=== PATIENT | male | born 1975 | race African-American/Black ===

== ENCOUNTER 2018-12-19 03:03 | Inpatient (IN) | payer SELFPAY ==
[2018-12-19] VITALS (9 sets, daily range): BP systolic 129–168; BP diastolic 90–144
[~2018-12-19] VITALS: Ht 167.6 cm; Wt 70.3 kg
--- NOTE | 2018-12-19 03:11 | NUR ---
ED Nurse Note: PT WALKED INTO ED C/O OF SOB X 1 HOUR. PT STATES IT STARTED PERCIPITATING WHILE HE WAS IN BED. PT DENIES ASTHMA HX BUT HAS HIGH BP
--- NOTE | 2018-12-19 03:15 | NUR ---
ED Nurse Note: IV LINE ESTABLISHED BLOOD SPECIMEN SENT TO LAB. PT PLACED ON 2 L NASAL CANNULA. BED AT LOWEST POSITION X 2 SIDERAILS.
--- NOTE | 2018-12-19 03:23 | Emergency Room Report ---
History of Present Illness General Chief Complaint: Dyspnea/Respdistress Source: Patient Present Illness HPI This is a 43-year-old male with a history of high blood pressure. He presents with chief lien shortness of breath. Onset was acute and occurred around 2 AM. Patient woke up with shortness of breath. Worse with lying flat. Worse with exertion. No chest pain. No fever chills but no swelling. About 6 days ago he had similar symptom when he called 911. He was better by the time paramedics got there. 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 Allergies: Coded Allergies: No Known Allergies (Unverified , 12/19/18) Patient History Past Medical History: see triage record, old chart reviewed, HTN Past Surgical History: none Pertinent Family History: none Social History: Reports: smoking Immunizations: other Reviewed Nursing Documentation: PMH: Agreed; PSxH: Agreed Nursing Documentation-PMH Past Medical History: No History, Except For Hx Hypertension: Yes Review of Systems Eye: Denies: eye pain, blurred vision ENT: Denies: ear pain, nose congestion, throat swelling Respiratory: Reports: shortness of breath; Denies: cough Cardiovascular: Reports: palpitations; Denies: chest pain Gastrointestinal: Denies: abdominal pain, diarrhea, nausea, vomiting Musculoskeletal: Denies: back pain, joint pain Skin: Denies: rash Neurological: Denies: headache, numbness Endocrine: Denies: increased thirst, increased urine Hematologic/Lymphatic: Denies: easy bruising All Other Systems: negative except mentioned in HPI Physical Exam Vital Signs Date Time Temp Pulse Resp B/P (MAP) Pulse Ox O2 Delivery O2 Flow Rate FiO2 12/19/18 03:07 99.0 124 18 164/119 (134) 94 Room Air Vitals with tachycardia and high blood pressure Sp02 EP Interpretation: reviewed, normal General Appearance: well appearing, no apparent distress, alert Head: normocephalic, atraumatic Eyes: bilateral eye PERRL, bilateral eye EOMI ENT: hearing grossly normal, normal pharynx Neck: full range of motion, supple, no meningismus Respiratory: chest non-tender, rales - At bases Cardiovascular #1: no murmur, tachycardia, irregularly irregular Gastrointestinal: normal bowel sounds, non tender, no mass, no organomegaly, no bruit, non-distended Musculoskeletal: back normal, gait/station normal, normal range of motion Psychiatric: mood/affect normal Procedures Critical Care Time Critical Care Time Critical care is mandated in this patient who presented with acute respiratory distress secondary to CHF/pulmonary edema. Patient require my urgent intervention to attenuate the risks of respiratory collapse which may lead to cardiovascular collapse and . Critical care time is 35 minutes excluding any reportable procedure. Critical care time included evaluation, multiple reevaluation, looking at old charts, interpreting laboratory and diagnostic data , discussing case with patient and family and consultants, and charting. Medical Decision Making Diagnostic Impression: Primary Impression: Respiratory distress Additional Impressions: Respiratory failure with hypoxia Qualified Codes: J96.01 - Acute respiratory failure with hypoxia Pulmonary edema Qualified Codes: J81.0 - Acute pulmonary edema Hypertensive CHF Qualified Codes: I11.0 - Hypertensive heart disease with heart failure ER Course Patient presents with acute respiratory failure requiring BiPAP. He was very tachycardic in the 130s to 140s. I gave him Cardizem which slowed down the heart rate but is still stay as sinus tachycardia. Blood pressure elevated. He does show evidence of pulmonary edema and CHF. First set of troponin negative. No evidence of any ST elevation. He does have severe LVH with repolarization. This is a typical presentation for PE. He is unstable for CT scan. He is unable to lay flat. I gave him a dose of Lovenox here. He diuresed over a liter with Lasix. Blood pressure improved with Vasotec and Cardizem. Heart rate improved also. He is more comfortable on BiPAP. Will admit for further work-up. I discussed the case with Dr. Paz who will admit. Lab Results Impression Labs with elevated BNP EKG Diagnostic Results Rate: tachycardiac Rhythm: NSR ST Segments: other - LVH with TWI Rhythm Strip Diag. Results EP Interpretation: yes Rate: 114 Rhythm: NSR, no PVC's, no ectopy Chest X-Ray Diagnostic Results Chest X-Ray Diagnostic Results : Chest X-Ray Ordered: Yes # of Views/Limited/Complete: 1 View Indication: Shortness of Breath EP Interpretation: Yes Interpretation: no consolidation, no effusion, no pneumothorax, other - CM with pulm edema Impression: Other - pulm edema Electronically Signed by: Evgeny Cespedes MD Last Vital Signs Date Time Temp Pulse Resp B/P (MAP) Pulse Ox O2 Delivery O2 Flow Rate FiO2 12/19/18 03:07 99.0 124 18 164/119 (134) 94 Room Air Status: improved Disposition: ADMITTED INPATIENT Condition: Critical Evgeny Cespedes MD Dec 19, 2018 03:23
[2018-12-19] MEDS ORDERED: dilTIAZem HCl 25mg/5ml Inj IVP ONE ×2 (03:30→03:45)
[2018-12-19 03:34] LABS: BASOPHILS % (AUTO) 2.2 % (0.0-2.0); EOSINOPHILS % (AUTO) 2.9 % (0.0-3.0); HEMATOCRIT 44.5 % (42.0-52.0); LYMPHOCYTES % (AUTO) 31.8 % (20.0-45.0); MEAN CORPUSCULAR VOLUME 88 FL (80-99); NEUTROPHILS % (AUTO) 51.1 % (45.0-75.0); PLATELET COUNT 234 K/UL (150-450); RED BLOOD COUNT 5.06 M/UL (4.70-6.10); RED CELL DISTRIBUTION WIDTH 12.7 % (11.6-14.8); WHITE BLOOD COUNT 4.1 K/UL (4.8-10.8)
[2018-12-19] MEDS ORDERED: dilTIAZem HCl 25mg/5ml Inj ONE (03:37)
--- NOTE | 2018-12-19 03:41 | NUR ---
ED Nurse Note: RT AT BEDSIDE
[2018-12-19] MEDS ORDERED: LORazepam Inj 2mg/ml 1ml IV ONE (03:45)
[2018-12-19 03:47] LABS: ANION GAP 9 mmol/L (5-15); BLOOD UREA NITROGEN 13 mg/dL (7-18); CALCIUM 8.8 MG/DL (8.5-10.1); CARBON DIOXIDE 24 MMOL/L (21-32); CHLORIDE 104 MMOL/L (98-107); CREATININE 1.1 MG/DL (0.55-1.30); POTASSIUM 3.7 MMOL/L (3.5-5.1); SODIUM 137 MMOL/L (136-145)
[2018-12-19 04:02] LABS: ALANINE AMINOTRANSFERASE 28 U/L (12-78); ALBUMIN 3.5 G/DL (3.4-5.0); ALBUMIN/GLOBULIN RATIO 0.7 (1.0-2.7); ALKALINE PHOSPHATASE 60 U/L (46-116); ASPARTATE AMINO TRANSFERASE 26 U/L (15-37); BILIRUBIN,TOTAL 0.6 MG/DL (0.2-1.0); CREATINE KINASE 64 U/L (26-308)
[2018-12-19] MEDS ORDERED: Enoxaparin 80mg Inj SUBQ ONE (04:30)
[2018-12-19] MEDS ORDERED: Nitroglycerin 2% oint pkt TOPIC ONE (04:30)
[2018-12-19] MEDS ORDERED: Enalaprilat 2.5mg/2ml Inj IV ONE (04:30)
[2018-12-19] MEDS ORDERED: LISINOPRIL10 MG ORAL (04:57)
--- NOTE | 2018-12-19 05:02 | NUR ---
ED Nurse Note: telephone report given to LAURA Carlton
--- NOTE | 2018-12-19 05:20 | NUR ---
ED Nurse Note: PT SENT UP WITH LAURA WATT AND MEETA GRIJALVA. PT IS AOX4, PT DENIES PAIN AT THE MOMENT. PT SHOWS NO ACUTE SIGNS OF DISTRESS. PT SKIN INTACT. PT DENIES PAIN AT THIS TIME. ALL BELONGINGS SENT UP WITH PT.
--- NOTE | 2018-12-19 05:25 | NUR ---
NURSE NOTES: Patient arrived via gurney from ER. Patient placed in bed, tax representative is on, linens are changed, belongings are accounted for at bedside. Report received from LAURA Hendrickson. Patient is stable. Will initiate plan of care.
--- NOTE | 2018-12-19 07:13 | NUR ---
HAND-OFF: Report given to SELVIN NETTLES RN.
[2018-12-19] MEDS ORDERED: Isovue-300 100ml vial INJ PRN (07:15)
--- NOTE | 2018-12-19 07:20 | NUR ---
NURSE NOTES: Received the patient from LAURA Carlton. Patient is asleep, easily arousable, aox4. On 2L O2 via NC. ST 100s noted on the monitoring specialist. Denies SOB or chest pain at this time. Left hand 20G intact. Bed in lowest position, locked, side rails upx2. Bed alarm on. Call light within reach. Will continue to monitor.
[2018-12-19] MEDS ORDERED: LORazepam Inj 2mg/ml 1ml IV SCH (07:31)
[2018-12-19] MEDS ORDERED: Isovue-370 150ml vial INJ PRN (08:15)
--- NOTE | 2018-12-19 08:52 | NUR ---
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 SI: CHF VS: BP: 166/144 HR: 127 RR 21 02 Sat 95% (BIPAP 30) T: 98.8 NT: WBC 4.1 Mean PLT 5.6 Total Protein 8.3 NT-proBNP 1647 UR Cannabinoid + IS: Cardizem 20mg IVP Lasix 40mg IV Cardizem 25mg IVP Ativan 1mg IV Admitted to SDU SDU status DCP: Pending Hospital Stay
[2018-12-19] MEDS ORDERED: Carvedilol 6.25mg Tab ORAL SCH ×2 (09:00→21:00)
[2018-12-19] MEDS ORDERED: Aspirin Baby 81mg ORAL SCH (09:00)
--- NOTE | 2018-12-19 09:00 | History and Physical Report ---
DATE OF ADMISSION: 12/19/2018 REASON FOR ADMISSION: 1. Shortness of breath. 2. Tachycardia. HISTORY OF PRESENT ILLNESS: The patient is a 43-year-old gentleman with isolated hypertension as past medical history, who presented to the emergency room complaining of shortness of breath. Acute on onset around 2 a.m. He was tachycardic. The ER said they could not do a CT with PE protocol due to his respiratory distress. The patient was placed on BiPAP and transferred to the SDU and given a dose of therapeutic Lovenox. The patient says that he does not take any illicit drug use. Denies any current chest pain. PAST MEDICAL HISTORY: Hypertension. PAST SURGICAL HISTORY: None. ALLERGIES: No known drug allergies. FAMILY HISTORY: None. SOCIAL HISTORY: Positive for tobacco. Denies alcohol or illicit drug use REVIEW OF SYSTEMS: NEUROLOGIC: The patient denies headache, change in vision, syncope, or presyncopal episodes. CARDIOVASCULAR: No current chest pain, palpitations, or angina. PULMONARY: Mild shortness of breath. Nonproductive cough. GASTROINTESTINAL/GENITOURINARY: No change in urine or bowels habits. No nausea, vomiting, or diarrhea. ENDOCRINOLOGY: No night sweats, fevers, or chills. PHYSICAL EXAMINATION: VITAL SIGNS: Blood pressure 124/94, respiratory rate 23, pulse 109, and temperature 98.9. The patient is on BiPAP. GENERAL: The patient is awake, mildly short of breath, not otherwise in distress. HEENT: Extraocular muscles intact. No lymphadenopathy noted. Oropharyngeal mucosa is clear and dry. CARDIOVASCULAR: S1, S2. Tachycardic. PULMONARY: rhonchi with positive rales. ABDOMINAL: Nondistended and nontender. EXTREMITY: No edema. LABORATORY DATA: Labs dated December 19, 2018 sodium 137, potassium 3.7, and creatinine 1.1. Brain natriuretic peptide 1647. Troponin 0.004. Hemoglobin 15, white cell count 4.1, and platelet count 234,000. Toxicology screen for marijuana. ASSESSMENT AND PLAN: 1. Respiratory failure. At this time, concern is for possible pulmonary embolism. The patient is being diuresed. Stat CT PE protocol has been ordered. The patient did receive therapeutic Lovenox 80 mg subcutaneous. We will re-evaluate post CT. 2. CHF. Could be secondary to PE. Troponin initial levels negative. Cardiology to evaluate. Pulmonary to evaluate for possible pulmonary embolism. 3. Tachycardia, shortness of breath. Questionable pulmonary embolism. The patient received therapeutic Lovenox. CT PE protocol has been ordered. 4. Hypertension. Blood pressure is currently stable. We will continue Coreg. 5. Tachycardia. It has resolved. Could be secondary to PE. Cardiology to evaluate. Albert Damon MD DR: TERESA JOB#: [id number] CC:
--- NOTE | 2018-12-19 10:45 | Diagnostic Imaging Report ---
ndication: Shortness of breath and tachycardia Technique: IV administration nonionic contrast. Spiral acquisitions obtained from the lung bases to the lung apices. Multiplanar and 3-D reconstructions were generated. Total dose length product 837.93 mGycm. CTDIvol(s) 23.4 mGy. Dose reduction achieved using automated exposure control Comparison: Chest radiograph of 6 hours earlier Findings: Evaluation is limited due to respiratory motion. There is good quality opacification of the pulmonary arteries. There are what appear to be intraluminal filling defects in bilateral upper lobe branches, but this is in the area most affected by motion and this is probably artifactual. No definite intraluminal filling defects or other findings to suggest acute pulmonary embolus are demonstrated otherwise. Normal caliber pulmonary arteries. No evidence of right ventricular dilatation. The heart is borderline enlarged and demonstrates evidence of left ventricular muscular hypertrophy. The proximal great neck vessels are normal in caliber and demonstrate normal branching anatomy. No evidence of thoracic aortic aneurysm or dissection. The included proximal abdominal visceral vessels are normal in caliber. The lungs demonstrate fairly extensive consolidation and atelectasis involving the bilateral lower lobes, particularly posteriorly. There is an irregular opacity in the periphery of the right middle lobe which measures 6 mm in diameter, image 59 series 8. The generalized interstitial congestion evident on prior chest radiograph is not evident on the current exam. There are small bilateral pleural effusions. No pericardial effusion. There is a prominent precarinal node which measures up to 2.4 cm long axis dimension and a prominent right paratracheal node which measures up to 2.1 cm long axis dimension. The included thyroid is unremarkable. No axillary or chest wall mass or adenopathy demonstrated. The included upper abdominal anatomy demonstrates possible hepatomegaly, liver incompletely included. The bones are unremarkable. Impression: No definite evidence of acute pulmonary embolus or other acute thoracic vascular pathology. However, motion artifact precludes exclusion of small upper lobe pulmonary emboli bilaterally. Bilateral basilar consolidation, may reflect confluent pulmonary edema versus pneumonia. There are also atelectatic changes at the lung bases. Small bilateral pleural effusions. Note that interstitial congestion evident on recent chest radiograph is not evident on this exam Borderline cardiomegaly with evidence of possible left ventricular muscular hypertrophy Irregular 6 mm opacity in the periphery of the right middle lobe, probably an inflammatory focus but if there is significant smoking history this should be followed up at 6-12 months Borderline mediastinal lymphadenopathy, significance/etiology uncertain Possible hepatomegaly The CT scanner at [facility] is accredited by the [employer] and the scans are performed using protocols designed to limit radiation exposure to as low as reasonably achievable to attain images of sufficient resolution adequate for diagnostic evaluation.
--- NOTE | 2018-12-19 10:59 | Cardiology Report ---
APPROVED REPORT EKG Measurement Heart [id number] Sinus tachycardia Possible Left atrial enlargement Left ventricular hypertrophy T wave abnormality, consider lateral ischemia Abnormal ECG
--- NOTE | 2018-12-19 11:40 | NUR ---
NURSE NOTES: CTA result reported to Dr. Damon. Monica to transfer the patient to tele.
--- NOTE | 2018-12-19 11:59 | Diagnostic Imaging Report ---
Indication: Shortness of breath for one day Technique: One view of the chest Comparison: none Findings: The heart is enlarged. There is bilateral mostly interstitial edema, possibly with some airspace involvement. The pleural spaces are grossly clear. Impression: Cardiomegaly with evidence of congestive heart failure
--- NOTE | 2018-12-19 12:45 | NUR ---
NURSE NOTES: Patient resting in bed comfortably. VSS. On 2L O2 Via NC. No acute distress noted.
[2018-12-19] MEDS ORDERED: cefTRIAXone 1 GM in D5W 55 ML IVPB SCH (14:00)
--- NOTE | 2018-12-19 14:00 | NUR ---
NURSE NOTES: Patient asleep, easily arousable. Patient on room air, O2 sat 96%. Patient denies any pain or SOB.
--- NOTE | 2018-12-19 15:00 | NUR ---
TRANSFER TO FLOOR: Patient transferred to [facility]. Report given to LAURA Gómez. Belongings and medications given to primary RN. Family informed of transfer.
--- NOTE | 2018-12-19 15:32 | NUR ---
NURSE NOTES: Received report from LAURA Lopes. The patient is resting on the bed without acute distress or shortness of breath. The belongings checked with the patient and LAURA Lopes and signed by receiving and transferring nurse. The patient's bed in the lowest position, call light in reach, and fall and aspiration precaution reinforced. IV site on left AC 20G SL and IV site on L hand 20G running Rocephin IVPB. The patient's skin is intact and free from shortness of breath. Dr. Damon was notified regarding CTA result and no new order but safe to be transferred to tele. The patient's vital signs were as follows: BP of 135/96, Temperature of 99F, SpO2 of 96% in room air, and pulse of 109. Will continue plan of care.
--- NOTE | 2018-12-19 16:15 | Consultation ---
DATE OF CONSULTATION: 12/19/2018 PULMONARY CONSULTATION HISTORY OF PRESENT ILLNESS: This is a 43-year-old male with history of hypertension came to the hospital with shortness of breath. This is acute onset and started yesterday morning. He was placed on BiPAP and given full dose Lovenox. The patient states he is feeling better in the last few hours he has been here. He underwent a CT of the chest and abdomen this morning which was negative for pulmonary embolism. There was bibasilar consolidation suspicious for pneumonia, small pleural effusions. There is also borderline cardiomegaly. The patient states he is feeling better overall. PAST MEDICAL HISTORY: Hypertension. PAST SURGICAL HISTORY: None. ALLERGIES: None. SOCIAL HISTORY: Alcohol and substance use. He admits to tobacco use. REVIEW OF SYSTEMS: Denies any headaches, hematemesis, melena, or hematochezia. PHYSICAL EXAMINATION: GENERAL: Reveals a 43-year-old male. HEENT: Unremarkable. CHEST: Clear breath sounds bilaterally. HEART: Normal heart sounds. ABDOMEN: Soft. EXTREMITIES: There is no edema. NEUROLOGIC: Nonfocal. LABORATORY AND DIAGNOSTIC DATA: Lab testing is unremarkable. Normal CBC and BMP. ProBNP is borderline elevated. Troponin is negative. Toxicology is positive for marijuana. ABG 7.45, pCO2 37, pO2 58, this is on room air. IMPRESSION: 1. Pneumonia versus pulmonary edema. 2. Hypertension. 3. . DISCUSSION: We will obtain 2D echo. Agree with current management and care. We will follow carefully. Consider antibiotics versus diuresis. Agapito Burr M.D. DR: Ozzie JOB#: [id number] CC:
--- NOTE | 2018-12-19 16:24 | Cardiology Report ---
APPROVED REPORT EXAM: Two-dimensional and M-mode echocardiogram with Doppler and color Doppler. INDICATION Congestive Heart Failure M-Mode DIMENSIONS IVSd1.2 (0.7-1.1cm)Left Atrium (MM)2.8 (1.6-4.0cm) LVDd5.2 (3.5-5.6cm)Aortic Root3.5 (2.0-3.7cm) PWd0.6 (0.7-1.1cm)Aortic Cusp Exc.2.1 (1.5-2.0cm) IVSs1.0 cm LVDs4.6 (2.5-4.0cm) PWs0.6 cm Global left ventricular hypoknesis. Mild left ventricular enlargement . Left ventricular ejection fraction estimated to be 20-25%. No evidence of left ventricular hypertrophy . No evidence of pericardial effusion. All other chamber sizes is within normal limits. Focal aortic valve sclerosis with adequate cusp excursion. Thickened mitral valve leaflets with normal excursion. Mitral annulus and aortic root calcification. Normal pulmonic valve structure. Normal tricuspid valve structure. IVC at normal size with physiologic collapse. A color flow and spectral Doppler study was performed and revealed: No aortic insufficiency. Mild to moderate mitral regurgitation. Mitral inflow velocities indicates possible pseudo normalization pattern implying moderately elevated left atrial pressure (Grade II ) Moderate tricuspid regurgitation. Tricuspid systolic velocities suggests peak right ventricular systolic pressure of 42 mmHg,consistent with mild pulmonary HTN.
--- NOTE | 2018-12-19 16:57 | NUR ---
NURSE NOTES: Notified Dr. Hopkins regarding abnormal 2D Echo result and sinus tachy upto 114, and s/s of shortness of breath. Will carry out the order as soon as receives it. Will continue plan of care.
--- NOTE | 2018-12-19 18:08 | Cardiac Electrophysiology PN ---
Subjective Subjective [id number] Objective Last 24 Hour Vital Signs Date Time Temp Pulse Resp B/P (MAP) Pulse Ox O2 Delivery O2 Flow Rate FiO2 12/19/18 16:00 114 12/19/18 16:00 98.9 109 18 134/90 (105) 96 12/19/18 16:00 Nasal Cannula 2.0 12/19/18 16:00 2.0 12/19/18 15:30 99.0 109 18 135/96 (109) 96 12/19/18 12:00 97.5 109 18 135/97 (110) 96 12/19/18 12:00 Nasal Cannula 2.0 12/19/18 12:00 2.0 12/19/18 11:38 104 12/19/18 08:25 109 132/95 12/19/18 08:00 Nasal Cannula 2.0 12/19/18 08:00 98.2 109 16 132/95 (107) 97 12/19/18 08:00 108 12/19/18 05:29 98.9 109 23 124/94 98 Bi-pap 40 12/19/18 05:27 113 12/19/18 05:25 97.3 114 24 129/92 (104) 96 12/19/18 05:25 40 12/19/18 05:25 Bi-pap 12/19/18 05:25 Bi-pap 12/19/18 05:09 111 28 98 Facial 40 12/19/18 04:54 98.9 111 19 151/112 96 Bi-pap 40 12/19/18 04:25 163/122 12/19/18 04:25 166/122 12/19/18 04:01 122 38 93 Facial 40 12/19/18 04:00 122 38 93 Bi-Pap 30 12/19/18 03:49 98.8 127 21 166/144 95 Bi-pap 30 12/19/18 03:40 40 12/19/18 03:38 140 157/115 12/19/18 03:23 124 164/119 12/19/18 03:10 99.0 133 22 168/134 99 Nasal Cannula 2.0 12/19/18 03:10 133 22 Room Air 12/19/18 03:07 99.0 124 18 164/119 (134) 94 Room Air Intake and Output 12/18/18 12/19/18 19:00 07:00 # Voids 3 Laboratory Tests Test 12/19/18 03:15 12/19/18 03:30 12/19/18 07:11 Urine Opiates Screen Negative (NEGATIVE) Urine Barbiturates Screen Negative (NEGATIVE) Phencyclidine (PCP) Screen Negative (NEGATIVE) Urine Amphetamines Screen Negative (NEGATIVE) Urine Benzodiazepines Screen Negative (NEGATIVE) Urine Cocaine Screen Negative (NEGATIVE) Urine Marijuana (THC) Screen Positive (NEGATIVE) H White Blood Count 4.1 K/UL (4.8-10.8) L Red Blood Count 5.06 M/UL (4.70-6.10) Hemoglobin 15.0 G/DL (14.2-18.0) Hematocrit 44.5 % (42.0-52.0) Mean Corpuscular Volume 88 FL (80-99) Mean Corpuscular Hemoglobin 29.7 PG (27.0-31.0) Mean Corpuscular Hemoglobin Concent 33.7 G/DL (32.0-36.0) Red Cell Distribution Width 12.7 % (11.6-14.8) Platelet Count 234 K/UL (150-450) Mean Platelet Volume 5.6 FL (6.5-10.1) L Neutrophils (%) (Auto) 51.1 % (45.0-75.0) Lymphocytes (%) (Auto) 31.8 % (20.0-45.0) Monocytes (%) (Auto) 12.0 % (1.0-10.0) H Eosinophils (%) (Auto) 2.9 % (0.0-3.0) Basophils (%) (Auto) 2.2 % (0.0-2.0) H Prothrombin Time 10.4 SEC (9.30-11.50) Prothromb Time International Ratio 1.0 (0.9-1.1) Activated Partial Thromboplast Time 29 SEC (23-33) Sodium Level 137 MMOL/L (136-145) Potassium Level 3.7 MMOL/L (3.5-5.1) Chloride Level 104 MMOL/L (98-107) Carbon Dioxide Level 24 MMOL/L (21-32) Anion Gap 9 mmol/L (5-15) Blood Urea Nitrogen 13 mg/dL (7-18) Creatinine 1.1 MG/DL (0.55-1.30) Estimat Glomerular Filtration Rate > 60 mL/min (>60) Glucose Level 103 MG/DL (74-106) Calcium Level 8.8 MG/DL (8.5-10.1) Total Bilirubin 0.6 MG/DL (0.2-1.0) Aspartate Amino Transf (AST/SGOT) 26 U/L (15-37) Alanine Aminotransferase (ALT/SGPT) 28 U/L (12-78) Alkaline Phosphatase 60 U/L (46-116) Total Creatine Kinase 64 U/L (26-308) Creatine Kinase MB 1.0 NG/ML (0.0-3.6) Creatine Kinase MB Relative Index 1.5 Troponin I 0.004 ng/mL (0.000-0.056) Pro-B-Type Natriuretic Peptide 1647 pg/mL (0-125) H Total Protein 8.3 G/DL (6.4-8.2) H Albumin 3.5 G/DL (3.4-5.0) Globulin 4.8 g/dL Albumin/Globulin Ratio 0.7 (1.0-2.7) L Arterial Blood pH 7.458 (7.350-7.450) Arterial Blood Partial Pressure CO2 37.7 mmHg (35.0-45.0) Arterial Blood Partial Pressure O2 58.3 mmHg (75.0-100.0) L Arterial Blood HCO3 26.1 mmol/L (22.0-26.0) H Arterial Blood Oxygen Saturation 91.1 % (95-100) L Arterial Blood Base Excess 2.3 (-2-2) H Chip Test Positive Rodrigue Hpokins MD Dec 19, 2018 18:08
--- NOTE | 2018-12-19 19:20 | NUR ---
RESPIRATORY NOTE: PT RECEIVED STABLE OFF BIPAP ON 2LPM O2 VIA NASAL CANNULA. VS ARE WNL AND PATIENT STATES THAT HE IS NOT HAVING ANY SOB AT THE TIME. PT AGREED TO NOTIFY RN IF HE FEELS HE NEED TO GO ON BIPAP. CURRENT ROOM IN WHICH PT IS STAYING DOES NOT HAV A RED OUTLET. LAURA VALENTINO WAS NOTIFIED AND HE WILL TRY TO FIND A ROOM WITH A RED OUTLET IN CASE THE PT NEED TO GO ON BIPAP. WILL CONTINUE TO MONITOR.
--- NOTE | 2018-12-19 19:27 | NUR ---
HAND-OFF: Report given to LAURA Mason. The patient is resting on the bed without acute distress or shortness of breath. The patient's bed in the lowest position, call light in reach, and fall and aspiration precaution reinforced. IV site intact and patent. Endorsed plan of care.
--- NOTE | 2018-12-19 19:30 | NUR ---
NURSE NOTES: Received patient from Dalia SANCHEZ. Patient in bed, on 2L NC, no s/s of respiratory distress. Patient denies pain or SOB. Bed in low position, locked, call light within reach.
--- NOTE | 2018-12-19 20:30 | Consultation ---
DATE OF CONSULTATION: 12/19/2018 CARDIOLOGY CONSULTATION CONSULTING PHYSICIAN: Rodrigue Hopkins M.D. REFERRING PHYSICIAN: Albert Damon M.D. REASON FOR CONSULTATION: Congestive heart failure. HISTORY OF PRESENT ILLNESS: The patient is a 43-year-old gentleman with history of hypertension, who presented to the emergency room complaining of increasing shortness of breath. The emergency room was unable to do a CT angiogram to rule out PE due to respiratory distress. The patient was put on BiPAP and transferred to step-down unit on Lovenox. Subsequently, the patient was then transferred to telemetry floor. The patient denies any prior myocardial infarction, coronary artery disease, or congestive heart failure. He underwent an echocardiogram, which showed ejection fraction of only 20% to 25%. REVIEW OF SYSTEMS: Negative other than what was mentioned in the history of present illness. PAST MEDICAL HISTORY: Hypertension. FAMILY HISTORY: Noncontributory. SOCIAL HISTORY: He lives at home. Denies using any drugs. PHYSICAL EXAMINATION: VITAL SIGNS: Show blood pressure 134/90, pulse 100, and respirations 18. He is afebrile. HEAD AND NECK: Shows positive JVD. LUNGS: Decreased breath sounds. CARDIOVASCULAR: Shows regular S1 and S2 with no gallop or murmur. ABDOMEN: Soft. EXTREMITIES: No pitting edema. LABORATORY AND DIAGNOSTIC DATA: EKG showed sinus rhythm with left atrial enlargement and left ventricular hypertrophy. Labs show toxicology was positive for marijuana. Sodium 137, potassium 3.7, BUN 13, and creatinine 1.1. Glucose 103. Troponin is negative. White count 4.1, hemoglobin 15, hematocrit 44, and platelet count 234,000. INR is 1. ASSESSMENT AND PLAN: 1. Newly diagnosed congestive heart failure, ejection fraction of only 20%. The patient denies any substance abuse. Urine toxicology screen is negative for any drugs except for marijuana. I will start the patient on Lasix 40 mg IV b.i.d. and Coreg 6.25 mg b.i.d., and add lisinopril and Aldactone to his medical regimen. After stabilization, the patient would need ischemic evaluation to rule out coronary artery disease even though unlikely in view of the patient's no prior coronary artery disease or congestive heart failure or chest pain. 2. Hypertension. Maximize current heart failure therapy. 3. Questionable pneumonia. The patient is on antibiotic, but hopefully will improve with diuresis, but remains on antibiotic. Further evaluation per Dr. Burr. Thank you very much for allowing me to participate in the care of this patient. Please do not hesitate to contact me for any questions regarding my evaluation. Rodrigue Hopkins M.D. DR: ROSA ISELA JOB#: [id number] CC:
[2018-12-20] VITALS: BP 145/93
[2018-12-20 04:00] VITALS: BP 145/103
[2018-12-20 06:24] LABS: BASOPHILS % (AUTO) 1.8 % (0.0-2.0); EOSINOPHILS % (AUTO) 2.1 % (0.0-3.0); HEMATOCRIT 43.8 % (42.0-52.0); HEMOGLOBIN 14.9 G/DL (14.2-18.0); LYMPHOCYTES % (AUTO) 23.8 % (20.0-45.0); MEAN CORPUSCULAR VOLUME 88 FL (80-99); MONOCYTES % (AUTO) 12.4 % (1.0-10.0); NEUTROPHILS % (AUTO) 59.9 % (45.0-75.0); PLATELET COUNT 224 K/UL (150-450); RED BLOOD COUNT 4.96 M/UL (4.70-6.10); RED CELL DISTRIBUTION WIDTH 12.9 % (11.6-14.8); WHITE BLOOD COUNT 3.8 K/UL (4.8-10.8)
[2018-12-20 06:45] LABS: ANION GAP 8 mmol/L (5-15); BLOOD UREA NITROGEN 23 mg/dL (7-18); CALCIUM 9.4 MG/DL (8.5-10.1); CARBON DIOXIDE 28 MMOL/L (21-32); CHLORIDE 103 MMOL/L (98-107); CREATININE 1.1 MG/DL (0.55-1.30); POTASSIUM 3.4 MMOL/L (3.5-5.1); SODIUM 139 MMOL/L (136-145)
--- NOTE | 2018-12-20 07:00 | NUR ---
NURSE NOTES: Notified Dr. Hopkins of patient's episode of Vtach of 3 secs overnight. Patient was asymptomatic, asleep. Notified Dr. Damon of AM potassium of 3.4 and that patient is on lasix 40mg IV q 12hrs.
--- NOTE | 2018-12-20 07:09 | NUR ---
NURSE NOTES: Received response from Dr. Hopkins. No new orders.
--- NOTE | 2018-12-20 07:33 | NUR ---
NURSE NOTES: Received report from LAURA Mason. The patient is resting on the bed without acute distress or shortness of breath. The patient denies of respiratory discomfort in room air for now. The patient's bed in the lowest position, call light in reach, and fall and aspiration precaution reinforced. IV site on L AC 20G and L hand 20G are intact and patent. Will continue plan of care.
--- NOTE | 2018-12-20 07:55 | NUR ---
HAND-OFF: Report given to Dalia SANCHEZ.
[2018-12-20 08:00] VITALS: BP 115/83
[2018-12-20] MEDS ORDERED: Isovue-370 150ml vial INJ PRN (08:15)
--- NOTE | 2018-12-20 08:15 | Nephrology Progress Note ---
Assessment/Plan Assessment/Plan: A/P 1) SOB- CAP - start po levaquin 2) CHF- EF 20% - lasix, , coreg, and lsiinopril 3) HTN- increase coreg 4) PNA- levaquin DC once cleared by cardiology Subjective Date patient seen: Dec 20, 2018 Time patient seen: 08:13 ROS Limited/Unobtainable: No Allergies: Coded Allergies: No Known Allergies (Unverified , 12/19/18) Subjective Patient breathing better Objective Last 24 Hour Vital Signs Date Time Temp Pulse Resp B/P (MAP) Pulse Ox O2 Delivery O2 Flow Rate FiO2 12/20/18 08:03 99 Nasal Cannula 2.0 28 12/20/18 08:03 100 18 100 Nasal Cannula 2.0 28 12/20/18 04:00 100.3 114 28 145/103 (117) 98 12/20/18 04:00 2.0 12/20/18 04:00 112 12/20/18 00:22 108 20 94 12/20/18 00:00 2.0 12/20/18 00:00 98.8 115 24 145/93 (110) 95 12/20/18 00:00 113 12/19/18 22:41 102 18 97 12/19/18 21:29 103 18 97 12/19/18 21:17 115 138/98 12/19/18 20:00 Nasal Cannula 2.0 12/19/18 20:00 124 12/19/18 20:00 2.0 12/19/18 20:00 99.7 115 28 138/98 (111) 94 12/19/18 19:20 100 20 96 12/19/18 16:00 114 12/19/18 16:00 98.9 109 18 134/90 (105) 96 12/19/18 16:00 Nasal Cannula 2.0 12/19/18 16:00 2.0 12/19/18 15:30 99.0 109 18 135/96 (109) 96 12/19/18 12:00 97.5 109 18 135/97 (110) 96 12/19/18 12:00 Nasal Cannula 2.0 12/19/18 12:00 2.0 12/19/18 11:38 104 12/19/18 08:25 109 132/95 Intake and Output 12/19/18 12/20/18 18:59 06:59 Intake Total 650 ml 800 ml Output Total 2150 ml 1000 ml Balance -1500 ml -200 ml Intake Oral 650 ml 800 ml Output Urine Total 2150 ml 1000 ml # Voids 6 7 Laboratory Tests 12/20/18 05:40: White Blood Count 3.8L, Red Blood Count 4.96, Hemoglobin 14.9, Hematocrit 43.8, Mean Corpuscular Volume 88, Mean Corpuscular Hemoglobin 30.0, Mean Corpuscular Hemoglobin Concent 34.0, Red Cell Distribution Width 12.9, Platelet Count 224, Mean Platelet Volume 5.7L, Neutrophils (%) (Auto) 59.9, Lymphocytes (%) (Auto) 23.8, Monocytes (%) (Auto) 12.4H, Eosinophils (%) (Auto) 2.1, Basophils (%) ( Auto) 1.8, Sodium Level 139, Potassium Level 3.4L, Chloride Level 103, Carbon Dioxide Level 28, Anion Gap 8, Blood Urea Nitrogen 23H, Creatinine 1.1, Estimat Glomerular Filtration Rate > 60, Glucose Level 104, Calcium Level 9.4, Troponin I 0.026, Pro-B-Type Natriuretic Peptide 814H Height (Feet): 5 Height (Inches): 6.00 Weight (Pounds): 154 General Appearance: no apparent distress EENT: normal ENT inspection Neck: normal alignment, supple Cardiovascular: normal rate, regular rhythm Respiratory/Chest: crackles/rales Abdomen: non tender, soft Edema: no edema noted Arm (L), no edema noted Arm (R), no edema noted Leg (L), no edema noted Leg (R), no edema noted Pedal (L), no edema noted Pedal (R), no edema noted Generalized Albert Damon MD Dec 20, 2018 08:15
[2018-12-20] MEDS ORDERED: Carvedilol 6.25mg Tab ORAL SCH (09:00)
[2018-12-20] MEDS: Carvedilol 6.25mg Tab ORAL SCH ×2 (09:09→21:06)
[2018-12-20] MEDS: Levofloxacin 500mg tab ORAL SCH (09:09)
[2018-12-20] MEDS: Spironolactone 25mg tab ORAL SCH (09:09)
[2018-12-20] MEDS: Aspirin Baby 81mg ORAL SCH (09:09)
[2018-12-20] MEDS: Lisinopril 10mg tab ORAL SCH (09:10)
--- NOTE | 2018-12-20 09:10 | Pulmonology Progress Note ---
Assessment/Plan Assessment/Plan IMPRESSION: 1. Pneumonia versus pulmonary edema. 2. Hypertension. DISCUSSION: Await cardiology followup. Agree with current management and care. I will follow carefully. Antibiotics. Subjective Interval Events: Seen by cardiology Constitutional: Reports: no symptoms HEENT: Repors: no symptoms Respiratory: Reports: no symptoms Cardiovascular: Reports: no symptoms Gastrointestinal/Abdominal: Reports: no symptoms Genitourinary: Reports: no symptoms Allergies: Coded Allergies: No Known Allergies (Unverified , 12/19/18) Objective Last 24 Hour Vital Signs Date Time Temp Pulse Resp B/P (MAP) Pulse Ox O2 Delivery O2 Flow Rate FiO2 12/20/18 08:03 99 Nasal Cannula 2.0 28 12/20/18 08:03 100 18 100 Nasal Cannula 2.0 28 12/20/18 04:00 100.3 114 28 145/103 (117) 98 12/20/18 04:00 2.0 12/20/18 04:00 112 12/20/18 00:22 108 20 94 12/20/18 00:00 2.0 12/20/18 00:00 98.8 115 24 145/93 (110) 95 12/20/18 00:00 113 12/19/18 22:41 102 18 97 12/19/18 21:29 103 18 97 12/19/18 21:17 115 138/98 12/19/18 20:00 Nasal Cannula 2.0 12/19/18 20:00 124 12/19/18 20:00 2.0 12/19/18 20:00 99.7 115 28 138/98 (111) 94 12/19/18 19:20 100 20 96 12/19/18 16:00 114 12/19/18 16:00 98.9 109 18 134/90 (105) 96 12/19/18 16:00 Nasal Cannula 2.0 12/19/18 16:00 2.0 12/19/18 15:30 99.0 109 18 135/96 (109) 96 12/19/18 12:00 97.5 109 18 135/97 (110) 96 12/19/18 12:00 Nasal Cannula 2.0 12/19/18 12:00 2.0 12/19/18 11:38 104 Intake and Output 12/19/18 12/20/18 19:00 07:00 Intake Total 650 ml 800 ml Output Total 2150 ml 1000 ml Balance -1500 ml -200 ml Intake Oral 650 ml 800 ml Output Urine Total 2150 ml 1000 ml # Voids 6 7 General Appearance: no acute distress HEENT: normocephalic Respiratory/Chest: chest wall non-tender, lungs clear Cardiovascular: normal peripheral pulses, normal rate Abdomen: normal bowel sounds, soft, non tender Laboratory Tests 12/20/18 05:40: White Blood Count 3.8L, Red Blood Count 4.96, Hemoglobin 14.9, Hematocrit 43.8, Mean Corpuscular Volume 88, Mean Corpuscular Hemoglobin 30.0, Mean Corpuscular Hemoglobin Concent 34.0, Red Cell Distribution Width 12.9, Platelet Count 224, Mean Platelet Volume 5.7L, Neutrophils (%) (Auto) 59.9, Lymphocytes (%) (Auto) 23.8, Monocytes (%) (Auto) 12.4H, Eosinophils (%) (Auto) 2.1, Basophils (%) ( Auto) 1.8, Sodium Level 139, Potassium Level 3.4L, Chloride Level 103, Carbon Dioxide Level 28, Anion Gap 8, Blood Urea Nitrogen 23H, Creatinine 1.1, Estimat Glomerular Filtration Rate > 60, Glucose Level 104, Calcium Level 9.4, Troponin I 0.026, Pro-B-Type Natriuretic Peptide 814H Current Medications Medications (Trade) Dose Ordered Sig/Malini Route PRN Reason Start Time Stop Time Status Last Admin Dose Admin Acetaminophen (Tylenol) 650 mg Q4H PRN ORAL Mild Pain (Pain Scale 1-3) 12/19/18 15:00 01/18/19 06:59 12/20/18 04:59 Aspirin (ASA) 81 mg DAILY ORAL 12/20/18 09:00 01/18/19 08:59 Carvedilol (Coreg) 6.25 mg EVERY 12 HOURS ORAL 12/20/18 09:00 01/18/19 08:59 Dextrose (Dextrose 50%) 25 ml Q30M PRN IV Hypoglycemia 12/19/18 15:00 01/18/19 06:59 Dextrose (Dextrose 50%) 50 ml Q30M PRN IV Hypoglycemia 12/19/18 15:00 01/18/19 06:59 Famotidine (Pepcid) 40 mg DAILY ORAL 12/20/18 09:00 01/18/19 08:59 Furosemide (Lasix) 40 mg EVERY 12 HOURS IV 12/19/18 21:00 01/18/19 08:59 12/19/18 21:17 Iopamidol (Isovue-370 150ml) 150 ml NOW PRN INJ Radiology Procedure 12/20/18 08:15 12/21/18 08:05 Levofloxacin (Levaquin) 500 mg DAILY ORAL 12/20/18 09:00 12/27/18 08:59 Lisinopril (Zestril) 10 mg DAILY ORAL 12/20/18 09:00 01/19/19 08:59 Potassium Chloride (K-Dur) 40 meq ONCE ORAL 12/20/18 08:45 12/20/18 10:00 Spironolactone (Aldactone) 25 mg DAILY ORAL 12/20/18 09:00 01/19/19 08:59 Agapito Burr MD Dec 20, 2018 09:10
--- NOTE | 2018-12-20 09:46 | NUR ---
NURSE NOTES: Dr. Damon ordered 40mEq KCL for potassium of 3.4. Administered as prescribed. Will continue plan of care.
--- NOTE | 2018-12-20 10:58 | NUR ---
CASE MANAGEMENT: REVIEW 12/20/2018 SI:CHF T 100.3 HR 114 RR 28 B/P 145/103 SATS 98% ON 2L/NC WBC 3.8 K 3.4 BUN 23 BNP 814 IS:LASIX IV Q12H COREG PO Q12H ASA PO Q12H LISINOPRIL PO QD ALDACTONE PO QD LEVAQUIN PO QD TELE STATUS PLAN OF CARE: AWAITING CARDIAC CLEARANCE Addendum: 12/20/18 at 1609 by Carolynn Lipscomb CM INTERQUAL MET
[2018-12-20 12:00] VITALS: BP 122/87
--- NOTE | 2018-12-20 13:57 | Cardiac Electrophysiology PN ---
Assessment/Plan Assessment/Plan 1. Newly diagnosed congestive heart failure, ejection fraction of 20-25% The patient denies any substance abuse. Urine toxicology screen is negative for any drugs except for marijuana. On Lasix 40 mg IV b.i.d., Coreg 6.25 mg bid and lisinopril and Aldactone. Will schedule stress test to rule out ischemic CMP 2. Hypertension. Maximize current heart failure therapy. Subjective Subjective Alert in NAD. No CP. SOB better. Had 11 beats of nonsustained VT Objective Last 24 Hour Vital Signs Date Time Temp Pulse Resp B/P (MAP) Pulse Ox O2 Delivery O2 Flow Rate FiO2 12/20/18 12:00 104 12/20/18 12:00 97.8 109 20 122/87 (99) 97 12/20/18 12:00 2.0 12/20/18 09:10 115/83 12/20/18 09:09 102 115/83 12/20/18 09:00 Nasal Cannula 2.0 12/20/18 08:03 99 Nasal Cannula 2.0 28 12/20/18 08:03 100 18 100 Nasal Cannula 2.0 28 12/20/18 08:00 2.0 12/20/18 08:00 101 12/20/18 08:00 97.9 102 20 115/83 (94) 95 12/20/18 04:00 100.3 114 28 145/103 (117) 98 12/20/18 04:00 2.0 12/20/18 04:00 112 12/20/18 00:22 108 20 94 12/20/18 00:00 2.0 12/20/18 00:00 98.8 115 24 145/93 (110) 95 12/20/18 00:00 113 12/19/18 22:41 102 18 97 12/19/18 21:29 103 18 97 12/19/18 21:17 115 138/98 12/19/18 20:00 Nasal Cannula 2.0 12/19/18 20:00 124 12/19/18 20:00 2.0 12/19/18 20:00 99.7 115 28 138/98 (111) 94 12/19/18 19:20 100 20 96 12/19/18 16:00 114 12/19/18 16:00 98.9 109 18 134/90 (105) 96 12/19/18 16:00 Nasal Cannula 2.0 12/19/18 16:00 2.0 12/19/18 15:30 99.0 109 18 135/96 (109) 96 Intake and Output 12/19/18 12/20/18 19:00 07:00 Intake Total 650 ml 920 ml Output Total 2150 ml 1000 ml Balance -1500 ml -80 ml Intake Oral 650 ml 920 ml Output Urine Total 2150 ml 1000 ml # Voids 6 7 Laboratory Tests Test 12/20/18 05:40 White Blood Count 3.8 K/UL (4.8-10.8) L Red Blood Count 4.96 M/UL (4.70-6.10) Hemoglobin 14.9 G/DL (14.2-18.0) Hematocrit 43.8 % (42.0-52.0) Mean Corpuscular Volume 88 FL (80-99) Mean Corpuscular Hemoglobin 30.0 PG (27.0-31.0) Mean Corpuscular Hemoglobin Concent 34.0 G/DL (32.0-36.0) Red Cell Distribution Width 12.9 % (11.6-14.8) Platelet Count 224 K/UL (150-450) Mean Platelet Volume 5.7 FL (6.5-10.1) L Neutrophils (%) (Auto) 59.9 % (45.0-75.0) Lymphocytes (%) (Auto) 23.8 % (20.0-45.0) Monocytes (%) (Auto) 12.4 % (1.0-10.0) H Eosinophils (%) (Auto) 2.1 % (0.0-3.0) Basophils (%) (Auto) 1.8 % (0.0-2.0) Sodium Level 139 MMOL/L (136-145) Potassium Level 3.4 MMOL/L (3.5-5.1) L Chloride Level 103 MMOL/L (98-107) Carbon Dioxide Level 28 MMOL/L (21-32) Anion Gap 8 mmol/L (5-15) Blood Urea Nitrogen 23 mg/dL (7-18) H Creatinine 1.1 MG/DL (0.55-1.30) Estimat Glomerular Filtration Rate > 60 mL/min (>60) Glucose Level 104 MG/DL (74-106) Calcium Level 9.4 MG/DL (8.5-10.1) Troponin I 0.026 ng/mL (0.000-0.056) Pro-B-Type Natriuretic Peptide 814 pg/mL (0-125) H Objective HEAD AND NECK: Mild JVD. LUNGS: Decreased breath sounds. CARDIOVASCULAR: Shows regular S1 and S2 with no gallop or murmur. ABDOMEN: Soft. EXTREMITIES: No pitting edema. Rodrigue Hopkins MD Dec 20, 2018 13:57
[2018-12-20] MEDS ORDERED: Lexiscan 0.4mg/5ml syringe IV PRN (13:59)
[2018-12-20] MEDS ORDERED: cefTRIAXone 1 GM in D5W 55 ML IVPB SCH (14:00)
[2018-12-20 16:00] VITALS: BP 129/94
--- NOTE | 2018-12-20 16:52 | NUR ---
NURSE NOTES: Dr. Hopkins ordered stress test for tomorrow. Vitaliy, the exhaust emissions automotive technician, the patient will perform nuclear treadmill test tomorrow. Will continue plan of care.
--- NOTE | 2018-12-20 19:40 | NUR ---
NURSE NOTES: Received patient from Dalia SANCHEZ. Patient in bed, on 2L NC, no s/s of respiratory distress, no c/o SOB or chest discomfort. Bed in low position, locked, call light within reach. Patient is alert and oriented x4, calm and cooperative.
[2018-12-20 20:00] VITALS: BP 114/80
[2018-12-21] VITALS: BP 116/74
[2018-12-21 04:00] VITALS: BP 120/77
--- NOTE | 2018-12-21 07:45 | Nephrology Progress Note ---
Assessment/Plan Assessment/Plan: A/P 1) SOB- CAP - po levaquin 2) CHF- EF 20% - lasix, , coreg, and lsiinopril - stress test today 3) HTN- stable 4) PNA- levaquin DC once cleared by cardiology today Subjective Date patient seen: Dec 21, 2018 Time patient seen: 07:43 ROS Limited/Unobtainable: No Allergies: Coded Allergies: No Known Allergies (Unverified , 12/19/18) Subjective Patient much improved. No SOB Objective Last 24 Hour Vital Signs Date Time Temp Pulse Resp B/P (MAP) Pulse Ox O2 Delivery O2 Flow Rate FiO2 12/21/18 04:00 98.1 95 20 120/77 (91) 98 12/21/18 04:00 2.0 12/21/18 04:00 87 12/21/18 00:00 92 12/21/18 00:00 99.2 94 20 116/74 (88) 99 12/21/18 00:00 2.0 12/20/18 21:06 99 114/80 12/20/18 21:00 Nasal Cannula 2.0 12/20/18 20:00 98.3 99 19 114/80 (91) 98 12/20/18 20:00 2.0 12/20/18 20:00 102 12/20/18 19:59 99 Nasal Cannula 2.0 28 12/20/18 16:00 98 12/20/18 16:00 98.3 104 20 129/94 (106) 99 12/20/18 16:00 2.0 12/20/18 12:00 104 12/20/18 12:00 97.8 109 20 122/87 (99) 97 12/20/18 12:00 2.0 12/20/18 09:10 115/83 12/20/18 09:09 102 115/83 12/20/18 09:00 Nasal Cannula 2.0 12/20/18 08:03 99 Nasal Cannula 2.0 28 12/20/18 08:03 100 18 100 Nasal Cannula 2.0 28 12/20/18 08:00 2.0 12/20/18 08:00 101 12/20/18 08:00 97.9 102 20 115/83 (94) 95 Intake and Output 12/20/18 12/21/18 18:59 06:59 Intake Total 1240 ml Output Total 600 ml Balance 640 ml Intake Oral 1240 ml Output Urine Total 600 ml # Voids 8 6 Height (Feet): 5 Height (Inches): 6.00 Weight (Pounds): 154 General Appearance: no apparent distress EENT: normal ENT inspection Neck: normal alignment, supple Cardiovascular: normal rate, regular rhythm Respiratory/Chest: lungs clear, normal breath sounds Abdomen: non tender, soft Edema: no edema noted Arm (L), no edema noted Arm (R), no edema noted Leg (L), no edema noted Leg (R), no edema noted Pedal (L), no edema noted Pedal (R), no edema noted Generalized Albert Damon MD Dec 21, 2018 07:45
[2018-12-21 08:53] VITALS: BP 124/89
[2018-12-21] MEDS: Carvedilol 6.25mg Tab ORAL SCH (09:00)
--- NOTE | 2018-12-21 09:22 | NUR ---
CASE MANAGEMENT: REVIEW 12/21/2018 SI:CHF T 98.1 HR 100 RR 18 B/P 124/89 SATS 98% ON RA NO LABS TODAY IS:LASIX IV Q12H COREG PO Q12H ASA PO Q12H LISINOPRIL PO QD ALDACTONE PO QD LEVAQUIN PO QD TELE STATUS PLAN OF CARE: STRESS TEST W/ TREADMILL TODAY 2D ECHO EF 30-35%
[2018-12-21] MEDS: Lisinopril 10mg tab ORAL SCH (09:27)
[2018-12-21] MEDS: Spironolactone 25mg tab ORAL SCH (09:27)
[2018-12-21] MEDS: Levofloxacin 500mg tab ORAL SCH (09:28)
[2018-12-21] MEDS: Aspirin Baby 81mg ORAL SCH (09:28)
--- NOTE | 2018-12-21 10:31 | Pulmonology Progress Note ---
Assessment/Plan Assessment/Plan IMPRESSION: 1. Probable pneumonia. 2. Hypertension. DISCUSSION: Await cardiology followup. Agree with antibiotics. Subjective Interval Events: None new Constitutional: Reports: no symptoms HEENT: Repors: no symptoms Respiratory: Reports: no symptoms Cardiovascular: Reports: no symptoms Gastrointestinal/Abdominal: Reports: no symptoms Allergies: Coded Allergies: No Known Allergies (Unverified , 12/19/18) Objective Last 24 Hour Vital Signs Date Time Temp Pulse Resp B/P (MAP) Pulse Ox O2 Delivery O2 Flow Rate FiO2 12/21/18 10:25 Nasal Cannula 2.0 12/21/18 09:27 124/89 12/21/18 09:00 100 124/89 12/21/18 08:53 98.1 100 18 124/89 (101) 98 12/21/18 08:16 97 Room Air 21 12/21/18 04:00 98.1 95 20 120/77 (91) 98 12/21/18 04:00 2.0 12/21/18 04:00 87 12/21/18 00:00 92 12/21/18 00:00 99.2 94 20 116/74 (88) 99 12/21/18 00:00 2.0 12/20/18 21:06 99 114/80 12/20/18 21:00 Nasal Cannula 2.0 12/20/18 20:00 98.3 99 19 114/80 (91) 98 12/20/18 20:00 2.0 12/20/18 20:00 102 12/20/18 19:59 99 Nasal Cannula 2.0 28 12/20/18 16:00 98 12/20/18 16:00 98.3 104 20 129/94 (106) 99 12/20/18 16:00 2.0 12/20/18 12:00 104 12/20/18 12:00 97.8 109 20 122/87 (99) 97 12/20/18 12:00 2.0 Intake and Output 12/20/18 12/21/18 18:59 06:59 Intake Total 1240 ml Output Total 600 ml Balance 640 ml Intake Oral 1240 ml Output Urine Total 600 ml # Voids 8 6 General Appearance: no acute distress HEENT: normocephalic Respiratory/Chest: chest wall non-tender, lungs clear Cardiovascular: normal peripheral pulses, normal rate Current Medications Medications (Trade) Dose Ordered Sig/Malini Route PRN Reason Start Time Stop Time Status Last Admin Dose Admin Acetaminophen (Tylenol) 650 mg Q4H PRN ORAL Mild Pain (Pain Scale 1-3) 12/19/18 15:00 01/18/19 06:59 12/20/18 21:12 Aspirin (ASA) 81 mg DAILY ORAL 12/20/18 09:00 01/18/19 08:59 12/21/18 09:28 Carvedilol (Coreg) 6.25 mg EVERY 12 HOURS ORAL 12/20/18 09:00 01/18/19 08:59 12/20/18 21:06 Dextrose (Dextrose 50%) 25 ml Q30M PRN IV Hypoglycemia 12/19/18 15:00 01/18/19 06:59 Dextrose (Dextrose 50%) 50 ml Q30M PRN IV Hypoglycemia 12/19/18 15:00 01/18/19 06:59 Famotidine (Pepcid) 40 mg DAILY ORAL 12/20/18 09:00 01/18/19 08:59 12/21/18 09:28 Furosemide (Lasix) 40 mg EVERY 12 HOURS IV 12/19/18 21:00 01/18/19 08:59 12/21/18 09:27 Levofloxacin (Levaquin) 500 mg DAILY ORAL 12/20/18 09:00 12/27/18 08:59 12/21/18 09:28 Lisinopril (Zestril) 10 mg DAILY ORAL 12/20/18 09:00 01/19/19 08:59 12/21/18 09:27 Regadenoson (Lexiscan) 0.4 mg ONCE PRN IV CARDIOLOGY 12/20/18 13:59 12/21/18 23:59 Spironolactone (Aldactone) 25 mg DAILY ORAL 12/20/18 09:00 01/19/19 08:59 12/21/18 09:27 Agapito Burr MD Dec 21, 2018 10:31
--- NOTE | 2018-12-21 11:34 | Nephrology Progress Note ---
Assessment/Plan Assessment/Plan: A/P 1) SOB- CAP - po levaquin x 5 days more. Rx given 2) CHF- EF 20% - coreg, and lsiinopril. Rx given - stress test today then DC if negative 3) HTN- stable 4) PNA- levaquin DC once cleared by cardiology today Subjective Date patient seen: Dec 21, 2018 Time patient seen: 11:33 ROS Limited/Unobtainable: No Allergies: Coded Allergies: No Known Allergies (Unverified , 12/19/18) Subjective Patient much improved. No SOB or CP Objective Last 24 Hour Vital Signs Date Time Temp Pulse Resp B/P (MAP) Pulse Ox O2 Delivery O2 Flow Rate FiO2 12/21/18 10:25 Nasal Cannula 2.0 12/21/18 09:27 124/89 12/21/18 09:00 100 124/89 12/21/18 08:53 98.1 100 18 124/89 (101) 98 12/21/18 08:16 97 Room Air 21 12/21/18 04:00 98.1 95 20 120/77 (91) 98 12/21/18 04:00 2.0 12/21/18 04:00 87 12/21/18 00:00 92 12/21/18 00:00 99.2 94 20 116/74 (88) 99 12/21/18 00:00 2.0 12/20/18 21:06 99 114/80 12/20/18 21:00 Nasal Cannula 2.0 12/20/18 20:00 98.3 99 19 114/80 (91) 98 12/20/18 20:00 2.0 12/20/18 20:00 102 12/20/18 19:59 99 Nasal Cannula 2.0 28 12/20/18 16:00 98 12/20/18 16:00 98.3 104 20 129/94 (106) 99 12/20/18 16:00 2.0 12/20/18 12:00 104 12/20/18 12:00 97.8 109 20 122/87 (99) 97 12/20/18 12:00 2.0 Intake and Output 12/20/18 12/21/18 18:59 06:59 Intake Total 1240 ml Output Total 600 ml Balance 640 ml Intake Oral 1240 ml Output Urine Total 600 ml # Voids 8 6 Height (Feet): 5 Height (Inches): 6.00 Weight (Pounds): 154 General Appearance: no apparent distress EENT: normal ENT inspection Neck: normal alignment, supple Cardiovascular: normal rate, regular rhythm Respiratory/Chest: lungs clear, normal breath sounds Abdomen: non tender, soft Edema: no edema noted Arm (L), no edema noted Arm (R), no edema noted Leg (L), no edema noted Leg (R), no edema noted Pedal (L), no edema noted Pedal (R), no edema noted Generalized Albert Damon MD Dec 21, 2018 11:34
--- NOTE | 2018-12-21 11:35 | Discharge Instructions ---
Discharge Instructions Discharge Instructions Services at Discharge: day care Diet: 2 GM sodium (low sodium) Resume Normal Activity?: Yes Activity: light activity Follow Up Orders Follow up with PCP 1 week Please give patient the prescriptions for Levaquin, Coreg and Lisinopril For Congestive Heart Failure Reminder Report to your physician any weight gain of 5 pounds or more in one week. Albert Damon MD Dec 21, 2018 11:35
[2018-12-21 12:00] VITALS: BP 117/99
--- NOTE | 2018-12-21 13:28 | NUR ---
Myocardial perfusion scan complete.
--- NOTE | 2018-12-21 14:57 | Diagnostic Imaging Report ---
Indications: Chest pain and shortness of breath Technique: Single day single isotope protocol utilized. Initially, resting images obtained using IV administration 3.0 millicuries 99M technetium Myoview. Subsequently, patient underwent treadmill stress testing. See cardiology report for details. During exercise, IV administration 30.7 mCi 99 M technetium Myoview. SPECT and planar images obtained. SPECT images gated to 8 phases of the cardiac cycle were also obtained, and reformatted into cine images for evaluation of ejection fraction. Comparison: none Findings: Per cardiology report, patient experienced no symptoms during exercise. Per cardiology report, resting EKG demonstrates sinus tachycardia. Patient exercised for 9 minutes 22 seconds, achieved a peak heart rate of 142 bpm, short of the target heart rate of 151 bpm imaging demonstrates equivocal slightly fixed decreased activity in the apex, seen only on the coronal long axis views, not evident on the sagittal and axis views. No other fixed or reversible poststress perfusion defects are demonstrated. There is dilatation of left ventricle. Calculated post stress ejection fraction 21% gated images demonstrate generalized hypokinesis Impression: Nonischemic clinical response to pharmacologic stress, per cardiology report Nonischemic electrocardiographic response to pharmacologic stress, per cardiology report Equivocal fixed apical perfusion defect in only on the coronal long axis images, suspected artifactual but could represent a tiny infarct. No evidence of ischemia, at the level of stress attained Calculated post stress ejection fraction 21%. There is mild dilatation of the left ventricle. There is generalized hypokinesis noted on gated images. This is out of proportion to the degree of perfusion abnormality, and the possibility of nonischemic cardiomyopathy or balanced triple-vessel disease should be considered
[2018-12-21] MEDS ORDERED: LEVAQUIN500 MG ORAL (15:46)
[2018-12-21] MEDS ORDERED: COREG6.25 MG ORAL (15:48)
--- NOTE | 2018-12-21 16:13 | NUR ---
NURSE NOTES: Pt received discharge order once cleared by cardiology with examination of cardiac stress test which was non-ischemic, ID and IV removed, aftercare plan given with prescription, pt will fill Rx at his own pharmacy, pt was Ox4 and was dress, willing to drive home. Family called to let them know of dc
--- NOTE | 2018-12-21 16:18 | Cardiac Electrophysiology PN ---
Assessment/Plan Assessment/Plan 1. Newly diagnosed congestive heart failure, ejection fraction of 20-25% The patient denies any substance abuse. Urine toxicology screen is negative for any drugs except for marijuana. On Lasix 40 mg IV b.i.d., Coreg 6.25 mg bid and lisinopril and Aldactone. Nuclear stress test was negative for ischemia. If EF remains less than 35% after 3 months, Will need propylactic ICD 2. Hypertension. Maximize current heart failure therapy. Subjective Subjective Alert in NAD. No CP or SOB better. Had stress test today Objective Last 24 Hour Vital Signs Date Time Temp Pulse Resp B/P (MAP) Pulse Ox O2 Delivery O2 Flow Rate FiO2 12/21/18 12:00 97.7 105 18 117/99 (105) 99 12/21/18 12:00 106 12/21/18 10:25 Nasal Cannula 2.0 12/21/18 09:27 124/89 12/21/18 09:00 100 124/89 12/21/18 08:53 98.1 100 18 124/89 (101) 98 12/21/18 08:16 97 Room Air 21 12/21/18 08:00 99 12/21/18 04:00 98.1 95 20 120/77 (91) 98 12/21/18 04:00 2.0 12/21/18 04:00 87 12/21/18 00:00 92 12/21/18 00:00 99.2 94 20 116/74 (88) 99 12/21/18 00:00 2.0 12/20/18 21:06 99 114/80 12/20/18 21:00 Nasal Cannula 2.0 12/20/18 20:00 98.3 99 19 114/80 (91) 98 12/20/18 20:00 2.0 12/20/18 20:00 102 12/20/18 19:59 99 Nasal Cannula 2.0 28 Intake and Output 12/20/18 12/21/18 19:00 07:00 Intake Total 1120 ml Output Total 600 ml Balance 520 ml Intake Oral 1120 ml Output Urine Total 600 ml # Voids 8 6 Objective HEAD AND NECK: Mild JVD. LUNGS: Decreased breath sounds. CARDIOVASCULAR: Shows regular S1 and S2 with no gallop or murmur. ABDOMEN: Soft. EXTREMITIES: No pitting edema. Rodrigue Hopkins MD Dec 21, 2018 16:18
--- NOTE | 2018-12-22 11:42 | Discharge Summary ---
Discharge Summary Discharge Summary _ DATE OF ADMISSION: 12/19/2018 DATE OF DISCHARGE: 12/21/2018 DISCHARGED BY: dr. Andrade REASON FOR ADMISSION: 43 years old male with past medical history of hypertension, presented to emergency department complaining of shortness of breath. Patient woke up with shortness of breath, worse with lying flat and exertion. He denied chest pain. No fever or chills. No leg swelling. Upon evaluation patient was tachycardic with heart rate 124 , blood pressure was elevated 164/119. Pulse oximetry was stable on room air. Patient was placed on the BiPAP. Patient received Cardizem with slowed heart rate , however he still remained in sinus tachycardia. Troponin was negative. Pro BNP 1647. EKG revealed sinus tachycardia, no acute ischemic changes. Patient intimally was at unstable for CT scan , since he was unable to lie flat. Patient received a dose of Lovenox and diuresed with Lasix. Blood pressure improved with Vasotec and Cardizem. Heart rate improved. Chest x-ray demonstrated cardiomegaly with evidence of congestive heart failure. Urine toxicology screen was positive for marijuana only. Patient improved on the BiPAP and admitted to telemetry floor for further work- up. CONSULTANTS: bean roaster Dr. Perdomo pulmonary Dr. Burr [facility] COURSE: Patient admitted to telemetry floor. Later , when patient stabilized , he undergone CTA of the chest , which revealed no definite evidence of acute pulmonary emboli or other acute thoracic vascular pathology. Bilateral basilar consolidation , likely reflecting pulmonary edema versus pneumonia. Atelectatic changes at the lung bases noted. Small bilateral pleural effusion. Interstitial congestion evident on recent chest radiograph was not evident on this exam. Borderline cardiomegaly with evidence of left ventricular hypertrophy. Supplemental oxygen provided as needed to keep pulse oximetry above 92%. Bronchodilator therapy provided. Patient was able to be weaned from the BiPAP to oxygen via nasal cannula. Echocardiogram revealed global left ventricular hypokinesis with left ventricular ejection fraction estimated to be 20 to 25%. No evidence of left ventricular hypertrophy. Moderately elevated left atrial pressure grade 2. Right ventricular systolic pressure of 42 , consistent with a mild pulmonary hypertension. Barrel Drainer followed. Serial troponin were negative. Patient with newly diagnosed congestive heart failure, with ejection fraction 20 to 25%. Patient denied any substance abuse. Urine toxicology screen was negative for any drugs , except marijuana. Patient started on guideline directed medical therapy with beta-yue, DANIELLE inhibitor , Lasix and Aldactone. Volumes and cardiorenal parameters were closely monitored. Pro BNP from 1647 down to 814. Nuclear stress test was negative for ischemia. Per bean roaster, patient will need to repeat ECHO in 3 months , if ejection fraction remains below 35%, he will need prophylactic AICD placement. Antiplatelet therapy with aspirin provided. Empiric antibiotic provided for possible pneumonia. Patient will need to complete antibiotic treatment as outpatient. GI prophylaxis provided. Patient clinically stabilized . Pulse oximetry stable on room air . Blood pressure stabilized with current regimen. Patient was ready for discharge home. FINAL DIAGNOSES: Newly diagnosed congestive heart failure with ejection fraction 20 to 25% Hypertension Community-acquired pneumonia DISCHARGE MEDICATIONS: See Medication Reconciliation list. DISCHARGE INSTRUCTIONS: Patient was discharged home. Outpatient follow-up with a primary care provider. Patient will need to repeat echocardiogram in 3 months. If ejection fraction below 35% , patient will need prophylactic AICD placement, as per bean roaster recommendations. I have been assigned to dictate discharge summary for this account. I was not involved in the patient's management. Karin Mccann NP Dec 22, 2018 11:42
== END 2018-12-21 16:16 | disposition home or self-care (01) | DRG 291 ==
LOC: EMR 03:21 → 2W 03:52 → EDBEDREQ 04:50 → 2E 15:06
DX: I11.0 Hypertensive heart disease with heart failure (principal); J96.90 Respiratory failure, unspecified, unspecified whether with hypoxia or hypercapnia; J18.9 Pneumonia, unspecified organism; I50.9 Heart failure, unspecified; R00.0 Tachycardia, unspecified
CPT/HCPCS: 36415; 36600; 71045; 71275; 78452; 80048; 80053; 80307; 82550; 82553; 82803; 83880; 84484; 85025; 85610; 85730; 93005; 93017; 93306; 94660; 94664; 96372; 96374; 96375; 99291; J8499

== ENCOUNTER 2018-12-27 09:13 | Emergency (ER) | payer SELFPAY ==
[~2018-12-27] VITALS: Ht 167.6 cm; Wt 72.6 kg
[~2018-12-27 09:13] MED LIST: COREG6.25 MG ORAL; LEVAQUIN500 MG ORAL; LISINOPRIL10 MG ORAL
[2018-12-27 09:45] VITALS: BP 149/102
--- NOTE | 2018-12-27 09:46 | Emergency Room Report ---
History of Present Illness General Chief Complaint: Upper Respiratory Illness Source: Patient Present Illness [facility] Disclaimer: Please note that this report is being documented using DRAGON technology. This can lead to erroneous entry secondary to incorrect interpretation by the dictating instrument. HPI: 43-year-old male with a history of hypertension, asthma, newly diagnosed CHF with reduced ejection fraction 20 to 25%, community-acquired pneumonia currently on his last day of treatment presents for evaluation of worsening cough. The patient was discharged from the hospital several days ago for new diagnosis of CHF and community acquired pneumonia. He was finishing his antibiotics and has 1 more day tomorrow. He awoke this morning approximately 4: 30 AM complaining of worsening coughing fits. He has been quitting smoking and cutting down significantly on his tobacco use. He had some help by using an old inhaler and is now feeling better but was brought in by his fiance for evaluation given his recent admission. He denies any orthopnea, chest pain, chest tightness, abdominal pain, vomiting, headache, fever, chills. He does state that he is bringing up more mucus than usual but attributed this initially to him trying to quit smoking. He denies any skin rash, skin breakdown. Denies weakness or chills PMH: CHF, community acquired pneumonia, hypertension, asthma PSH: Denies Allergies: Denies Social Hx: Tobacco user, currently in the process of quitting. Denies excessive alcohol or drug use Allergies: Coded Allergies: No Known Allergies (Unverified , 12/19/18) Nursing Documentation-PM Past Medical History: No History, Except For Hx Cardiac Problems: Yes Hx Hypertension: Yes Hx Cancer: No Hx Gastrointestinal Problems: No Hx Neurological Problems: No Review of Systems All Other Systems: negative except mentioned in HPI Physical Exam Vital Signs Date Time Temp Pulse Resp B/P (MAP) Pulse Ox O2 Delivery O2 Flow Rate FiO2 12/27/18 09:21 99.0 110 20 149/102 (118) 96 Room Air General: Awake and alert, no acute distress HEENT: NC/AT. EOMI. Cardiovascular: Tachycardic. S1 and S2 normal. No murmur appreciated Resp: Normal work of breathing. No cough during my exam. No significant wheezes. Patient has faint crackles at the right lower lung base. Abdomen: Abdomen is soft, nondistended. Nontender Skin: Intact. No abrasions, laceration or rash over the exposed skin MSK: Normal tone and bulk. Moving all extremities. No obvious deformity. Neuro: Awake and alert. Mentating appropriately. Medical Decision Making Diagnostic Impression: Primary Impression: CHF (congestive heart failure) Additional Impression: Cough ER Course Is a 43-year-old male recently discharged from the hospital with new diagnosis of community acquired pneumonia and CHF with reduced ejection fraction of 20 to 25% presents for evaluation of coughing fits beginning early this morning. Differential includes was not limited to bronchitis, persistent pneumonia, CHF exacerbation, symptoms related to smoking cessation, side effect of recently starting ADNIELLE inhibitors. We will repeat x-ray and basic labs. The patient is overall well-appearing with stable vital signs. We will refill an albuterol inhaler however if he has no significant lab or imaging abnormalities likely he will be discharged home. Laboratory Tests Test 12/27/18 09:50 White Blood Count 4.1 K/UL (4.8-10.8) L Red Blood Count 4.64 M/UL (4.70-6.10) L Hemoglobin 13.9 G/DL (14.2-18.0) L Hematocrit 41.0 % (42.0-52.0) L Mean Corpuscular Volume 88 FL (80-99) Mean Corpuscular Hemoglobin 29.9 PG (27.0-31.0) Mean Corpuscular Hemoglobin Concent 33.8 G/DL (32.0-36.0) Red Cell Distribution Width 12.1 % (11.6-14.8) Platelet Count 214 K/UL (150-450) Mean Platelet Volume 6.3 FL (6.5-10.1) L Neutrophils (%) (Auto) 72.9 % (45.0-75.0) Lymphocytes (%) (Auto) 16.9 % (20.0-45.0) L Monocytes (%) (Auto) 7.9 % (1.0-10.0) Eosinophils (%) (Auto) 0.8 % (0.0-3.0) Basophils (%) (Auto) 1.4 % (0.0-2.0) Sodium Level 141 MMOL/L (136-145) Potassium Level 3.9 MMOL/L (3.5-5.1) Chloride Level 105 MMOL/L (98-107) Carbon Dioxide Level 27 MMOL/L (21-32) Anion Gap 9 mmol/L (5-15) Blood Urea Nitrogen 16 mg/dL (7-18) Creatinine 1.1 MG/DL (0.55-1.30) Estimate Glomerular Filtration Rate > 60 mL/min (>60) Glucose Level 118 MG/DL (74-106) H Calcium Level 8.9 MG/DL (8.5-10.1) Troponin I 0.049 ng/mL (0.000-0.056) Pro-B-Type Natriuretic Peptide 2199 pg/mL (0-125) H EKG Diagnostic Results EKG Time: 11:39 Rate: tachycardiac Rhythm: NSR Other Impression Sinus tachycardia, normal intervals, slight left axis deviation, upsloping ST segments in the precordial leads unchanged from previous EKGs. No acute ischemic changes Rhythm Strip Diag. Results Rhythm Strip Time: 11:39 EP Interpretation: yes Rate: 110s Rhythm: NSR, no PVC's, no ectopy Other Impression Sinus tachycardia Chest X-Ray Diagnostic Results Chest X-Ray Diagnostic Results : Chest X-Ray Ordered: Yes # of Views/Limited/Complete: 2 View Indication: Shortness of Breath EP Interpretation: Yes PA Xray: Interpretation reviewed Interpretation: no consolidation, no pneumothorax Impression: Other - Bilateral vascular congestion, no obvious consolidation Electronically Signed by: Electronically signed by Dr. Santy Dunlap Reevaluation Time: 11:20 Last Vital Signs Date Time Temp Pulse Resp B/P (MAP) Pulse Ox O2 Delivery O2 Flow Rate FiO2 12/27/18 09:21 99.0 110 20 149/102 (118) 96 Room Air Reevaluation Impression Labs show an elevated peptide but unremarkable troponin other labs are within normal limits. His EKG shows sinus tachycardia and is unchanged from previous. Review of the patient's chart shows that he is always tachycardic while in the hospital and the patient states he has been told multiple times that he has a fast resting heart rate. He had a CTA performed on his last admission and showed no evidence of pulmonary embolism. I have little clinical suspicion at this time. His chest x-ray shows bilateral vascular congestion consistent with acute CHF. Does not appear that the patient was started on diuretics at his last admission. Will start on a short course of diuretics and give a oral dose in the emergency department today. His cough may be secondary to starting a new DANIELLE inhibitor, CHF or smoking cessation as he can have a paradoxical reflex cough. I discussed the need for urgent follow-up with him and provided some clinics in the area where he can be reevaluated within the next week. We discussed reasons to return to the emergency department as well as finishing his course of antibiotics for his community acquired pneumonia. He understands and agrees with the treatment plan will be discharged home. Disposition: HOME, SELF-CARE Condition: Stable Scripts Furosemide* (LASIX*) 20 Mg Tablet 20 MG ORAL DAILY for 5 Days, #5 TAB Prov: Santy Dunlap MD 12/27/18 Albuterol Sulfate* (ALBUTEROL SULFATE MDI*) 8.5 Gm Hfa.aer.ad 2 PUFF INH Q4H PRN for cough/wheezing, #1 EA 0 Refills Prov: Santy Dunlap MD 12/27/18 Referrals: NOT CHOSEN IPA/,REFERRING (PCP) Santy Dunlap MD Dec 27, 2018 09:46
--- NOTE | 2018-12-27 09:46 | NUR ---
ED Nurse Note: pt walked in c/o cough and states he was admitted for pna and is on abx and that he stopped smoking and is coughing alot. ermd jolynn done .
--- NOTE | 2018-12-27 09:53 | NUR ---
ED Nurse Note: blood sent to lab
[2018-12-27 10:03] LABS: BASOPHILS % (AUTO) 1.4 % (0.0-2.0); EOSINOPHILS % (AUTO) 0.8 % (0.0-3.0); HEMOGLOBIN 13.9 G/DL (14.2-18.0); LYMPHOCYTES % (AUTO) 16.9 % (20.0-45.0); MEAN CORPUSCULAR VOLUME 88 FL (80-99); MONOCYTES % (AUTO) 7.9 % (1.0-10.0); NEUTROPHILS % (AUTO) 72.9 % (45.0-75.0); PLATELET COUNT 214 K/UL (150-450); RED BLOOD COUNT 4.64 M/UL (4.70-6.10); RED CELL DISTRIBUTION WIDTH 12.1 % (11.6-14.8); WHITE BLOOD COUNT 4.1 K/UL (4.8-10.8)
[2018-12-27 10:07] LABS: ANION GAP 9 mmol/L (5-15); BLOOD UREA NITROGEN 16 mg/dL (7-18); CALCIUM 8.9 MG/DL (8.5-10.1); CARBON DIOXIDE 27 MMOL/L (21-32); CHLORIDE 105 MMOL/L (98-107); CREATININE 1.1 MG/DL (0.55-1.30); POTASSIUM 3.9 MMOL/L (3.5-5.1); SODIUM 141 MMOL/L (136-145)
--- NOTE | 2018-12-27 10:42 | NUR ---
ED Nurse Note: pt does not have a line med order to be changed by ermd to PO lasix.
[2018-12-27] MEDS ORDERED: Furosemide 40mg tab ORAL ONE (10:45)
[2018-12-27] MEDS ORDERED: ALBUTEROL SULF8.5 GM INH (11:19)
[2018-12-27] MEDS ORDERED: FUROSEMIDE20 M1 ORAL (11:19)
[2018-12-27 12:10] VITALS: BP 130/92
--- NOTE | 2018-12-27 12:11 | NUR ---
ER DISCHARGE NOTE: Patient is cleared to be discharged per ERMD, pt is aox4, on room air, with stable vital signs. pt was given dc and prescription instructions, pt was able to verbalize understanding, pt id band removed. pt is able to ambulate with steady gait. pt took all belongings.
[2018-12-27 12:12] VITALS: BP 130/92
--- NOTE | 2018-12-27 12:15 | Diagnostic Imaging Report ---
Indication: Cough Comparison: 12/19/2018 2 views of the chest obtained. Findings: Pulmonary vascular congestion appears improved since the last examination although there is some probably mild residual edema at this time. Please correlate clinically. Heart size is borderline enlarged currently. IMPRESSION: Mild pulmonary vascular congestion suspected although improved compared to 8 days earlier.
== END 2018-12-27 12:12 | disposition home or self-care (01) ==
LOC: EMR 09:29
DX: I50.9 Heart failure, unspecified (principal); R05 Cough; I11.0 Hypertensive heart disease with heart failure; J45.909 Unspecified asthma, uncomplicated; F17.200 Nicotine dependence, unspecified, uncomplicated; R06.02 Shortness of breath; R00.0 Tachycardia, unspecified
CPT/HCPCS: 36415; 71046; 80048; 83880; 84484; 85025; 93005; 99283